=== PATIENT | female | born 1955 | race Caucasian/White ===

== ENCOUNTER 2022-04-19 11:22 | Outpatient (CLI) | payer OTHER ==
[2022-04-19 18:22] LABS: THYROID STIMULATING HORMONE 0.75 uIU/mL (0.34-5.60)
== END 2022-04-19 11:23 | disposition home or self-care (01) ==
LOC: LAB.N 11:22
PROVIDERS: ATTEND Family Medicine
DX: E03.9 Hypothyroidism, unspecified (principal)
CPT/HCPCS: 36415; 84443

== ENCOUNTER 2023-03-26 11:24 | Outpatient (CLI) | payer MEDICARE | END 2023-03-26 11:25 | disposition critical access hospital (66) | LOC: EMS 11:24 | DX: M25.512 Pain in left shoulder (principal); R20.2 Paresthesia of skin; S01.21XA Laceration without foreign body of nose, initial encounter; S00.81XA Abrasion of other part of head, initial encounter; K08.419 Partial loss of teeth due to trauma, unspecified class; W01.0XXA Fall on same level from slipping, tripping and stumbling without subsequent striking against object, initial encounter; Y93.K1 Activity, walking an animal; Y92.414 Local residential or business street as the place of occurrence of the external cause | CPT/HCPCS: A0425; A0427 ==

== ENCOUNTER 2023-03-26 11:40 | Emergency (ER) | payer OTHER ==
--- NOTE | 2023-03-26 12:09 | ED Physician Documentation ---
History of Present Illness - Stated complaint Stated Complaint: FALL/HEAD LAC/NOSE/MOUTH - Chief complaint Chief Complaint: Trauma Hd/Nk - History obtained from History obtained from: Patient, EMS - History of Present Illness Timing: Today Pain level max: 7 Pain level now: 7 - Additonal information Additional information: Patient was walking her dog today when it pulled on the leash and she fell to the ground. She knocked out her 2 front teeth. Has pain to the head, forehead, upper neck, nose. Also complaining of pain to left shoulder. States she is unable to move the left shoulder. She has also complaining of abrasions to the bilateral knees. No loss of consciousness. No vomiting but when EMS gave her pain medication, she became nauseated so they gave her Zofran. She is not on blood thinners. She states she is not up-to-date on her tetanus vaccination but refuses any vaccinations. Review of Systems Constitutional: denies: Fever, Chills GI: denies: Vomiting, Diarrhea Skin: denies: Rash Musculoskeletal: denies: Back pain Neurologic: denies: Focal weakness, Numbness, Confused, Altered mental status PD PAST MEDICAL HISTORY - Present Medications Home Medications: Ambulatory Orders Medication Instructions Recorded Confirmed Chlorhexidine Gluconate [Peridex] 15 ml MM BID #118 ml 03/26/23 Promethazine [Phenergan] 25 mg PO Q6H PRN #10 tab 03/26/23 cephALEXin [Keflex] 500 mg PO Q6H #28 cap 03/26/23 oxyCODONE [Roxicodone] 5 - 10 mg PO Q6H PRN #14 tablet 03/26/23 MDD 6 - Allergies Allergies/Adverse Reactions: Allergies Allergy/AdvReac Type Severity Reaction Status Date / Time nitrofurantoin Allergy Hives Verified 03/26/23 11:59 [From Macrodantin] Sulfa (Sulfonamide Allergy Hives Verified 03/26/23 11:59 Antibiotics) - Family History Family history: reports: Non contributory - Immunizations Immunizations: TDAP >10years/unknown PD ED PE NORMAL - Vitals Vital signs reviewed: Yes - General General: Alert and oriented X 3, No acute distress, Well developed/nourished - HEENT HEENT: PERRL, EOMI, Ears normal, Moist mucous membranes, Pharynx benign, Other (Abrasions to the forehead, the nose, small laceration to the inner aspect of the lower lip. Teeth 8 and 9 are avulsed and missing. Tooth #10 is loose. No other facial bone tenderness) - Neck Neck: Supple, no meningeal sign, No bony TTP - Cardiac Cardiac: RRR, Strong equal pulses - Respiratory Respiratory: No respiratory distress, Clear bilaterally - Abdomen Abdomen: Soft, Non tender, Non distended - Derm Derm: Warm and dry - Extremities Extremities: Other (Tender to palpation over the left glenohumeral joint. Unable to move the left arm secondary to pain. Neurovascular intact. Small abrasions to the bilateral knees. No tenderness, full range of motion of both knees without pain. Otherwise normal examination of the extremities.) - Neuro Neuro: Alert and oriented X 3, l tacker 2-12 intact, No motor deficit, No sensory deficit, Normal speech Eye Opening: Spontaneous Motor: Obeys Commands Verbal: Oriented GCS Score: 15 - Psych Psych: Normal mood, Normal affect Results - Vitals Vitals: Vital Signs - 24 hr 03/26/23 03/26/23 03/26/23 11:48 13:07 13:37 Temperature 36.1 C L Heart Rate 70 83 85 Respiratory 28 H 20 20 Rate Blood Pressure 139/71 H 130/62 129/61 O2 Saturation 100 97 100 Oxygen O2 Source Room air - Labs Labs: Laboratory Tests 03/26/23 03/26/23 12:18 12:18 WBC 9.2 RBC 4.60 Hgb 13.6 Hct 40.8 MCV 88.7 MCH 29.6 MCHC 33.3 RDW 13.1 Plt Count 177 MPV 11.4 H Neut # (Auto) 6.5 Lymph # (Auto) 1.8 [place] # (Auto) 0.8 Eos # (Auto) 0.1 Baso # (Auto) 0.0 Absolute Nucleated RBC 0.00 Nucleated RBC % 0.0 Sodium 135 Potassium 3.9 Chloride 105 Carbon Dioxide 23 Anion Gap 7.0 BUN 21 H Creatinine 0.9 Estimated GFR (MDRD) 62 L Glucose 128 H Calcium 9.4 Total Bilirubin 0.5 AST 26 ALT 20 Alkaline Phosphatase 92 Total Protein 6.9 Albumin 4.2 Globulin 2.7 Albumin/Globulin Ratio 1.6 Lipase 38 - Rads (name of study) head CT Relevant Findings:: Final report received, See rad report maxillofacial CT Relevant Findings:: Final report received, See rad report cervical spine CT Relevant Findings:: Final report received, See rad report L shoulder CT Relevant Findings:: Final report received, See rad report L shoulder xray Relevant Findings:: Final report received, See rad report PD Medical Decision Making - ED course Complexity details: reviewed results, re-evaluated patient, considered differential, d/w patient, d/w interior design consultant ED course: 67-year-old female status post ground-level fall. Has a left impacted comminuted humeral head fracture. Neurovascularly intact. Placed in a shoulder immobilizer. She also is missing her eighth and ninth teeth. Multiple facial abrasions. Has a small nasal fracture at the tip of her nose. No lacerations that require repair. We will place on Keflex, Peridex. Recommend liquid diet. Discussed the case with Dr. Jones, orthopedics, recommends a CT of the left shoulder for operative planning. This was performed. Also discussed the case with Dr. Ron barfield, [facility] who will follow-up with the patient in the office. No indication to replant the teeth at this time. Patient counseled regarding signs and symptoms for which I believe and urgent re-evaluation would be necessary. Patient with good understanding of and agreement to plan and is comfortable going home at this time This document was made in part using voice recognition software. While efforts are made to proofread this document, sound alike and grammatical errors may occur. Departure - Departure Disposition: 01 Home, Self Care Clinical Impression: Facial abrasion Qualifiers: Encounter type: initial encounter Qualified Code(s): S00.81XA - Abrasion of other part of head, initial encounter Avulsed tooth Qualifiers: Encounter type: initial encounter Qualified Code(s): S03.2XXA - Dislocation of tooth, initial encounter Shoulder fracture, left Qualifiers: Encounter type: initial encounter Fracture type: closed Qualified Code(s): S42.92XA - Fracture of left shoulder girdle, part unspecified, initial encounter for closed fracture Nasal fracture Qualifiers: Encounter type: initial encounter Fracture type: closed Qualified Code(s): S02.2XXA - Fracture of nasal bones, initial encounter for closed fracture Condition: Good Instructions: ED Abrasion, ED Fx Tooth, ED Head Injury Closed, ED Fx Shoulder Follow-Up: POONAM DUNN DO [Primary Care Provider] - Within 1 week NATALIE BRUCE [Physician No Access] - Obi Jones MD [Provider Admit Priv/Credential] - Prescriptions: cephALEXin [Keflex] 500 mg PO Q6H #28 cap Chlorhexidine Gluconate [Peridex] 15 ml MM BID #118 ml Promethazine [Phenergan] 25 mg PO Q6H PRN #10 tab PRN Reason: Nausea / Vomiting oxyCODONE [Roxicodone] 5 - 10 mg PO Q6H PRN #14 tablet MDD 6 PRN Reason: pain Comments: Your prescriptions were sent to [facility] in [place]. It is importantly follow-up with orthopedics for your shoulder fracture as this will likely require surgery. A CT scan was performed of your shoulder today as well. I spoke with Dr. Jones, orthopedics who can see you in the office. I also spoke with Dr. Bruce, oral maxillofacial surgery who will follow you up for your dental trauma. Please call their offices for appointments. Please return if you worsen. Would recommend a soft food diet/liquid diet until your teeth are evaluated. Please be careful that food does not become stuck in the empty sockets as well.You may need to gently irrigate your mouth after eating. I am prescribing a short course of narcotic pain medication for you. These are potentially dangerous and addictive medications that should be used carefully. These medications may constipate you. Take an ggxl-rsb-mmwfqeg stool softener (docusate) twice daily with plenty of water while taking these medications. If you go 24 hours without a bowel movement, take kruw-snb-yrixfnt miralax, per package instructions. Do not drink or drive while taking these medications. If you received narcotic or sedating medications while in the emergency department, do not drive for 24 hours. Store this medication in a safe, secure place and out of reach of children. It is a violation of federal law to give or sell this medication to another person or to use in a manner other than prescribed. The ED will not refill narcotic prescriptions, including prescriptions lost or stolen. To dispose of unwanted medications: 1. [facility] [address] in [place] has a medication drop box. They accept prescription medications (in pill form) Friday through Friday 9:00 a.m. to 5:00 p.m. 2. [facility] [employer] accepts prescription medications (in pill form only) for disposal year round. Call for more information. 3. Contact the [facility] for the next [facility] sponsored prescription drug collection event. , [phone], or [phone]; Forms: PCP List Discharge Date/Time: 03/26/23 14:39
[2023-03-26] MEDS: DROPERIDOL 5 MG/2 ML VIAL IVP STA (12:12)
[2023-03-26] MEDS: SODIUM CHLORIDE 0.9% 1,000 ML IV STA (12:12)
[2023-03-26] MEDS: HYDROmorphone 1 MG/ML CARPUJECT IVP STA (12:12)
[2023-03-26 12:22] LABS: BASOPHILS % (AUTO) 0.4 %; EOSINOPHILS # (AUTO) 0.1 10^3/uL (0.0-0.7); EOSINOPHILS % (AUTO) 0.8 %; HCT - HEMATOCRIT 40.8 % (37.0-47.0); HGB - HEMOGLOBIN 13.6 g/dL (12.0-16.0); LYMPHOCYTES # (AUTO) 1.8 10^3/uL (1.5-3.5); LYMPHOCYTES % (AUTO) 19.2 %; MEAN CORPUSCULAR HEMOGLOBIN 29.6 pg (27.0-31.0); MEAN CORPUSCULAR HGB CONC 33.3 g/dL (32.0-36.0); MEAN CORPUSCULAR VOLUME 88.7 fL (81.0-99.0); MEAN PLATELET VOLUME 11.4 fL (7.9-10.8); MONOCYTES # (AUTO) 0.8 10^3/uL (0.0-1.0); MONOCYTES % (AUTO) 8.5 %; NEUTROPHILS # (AUTO) 6.5 10^3/uL (1.5-6.6); NEUTROPHILS % (AUTO) 70.7 %; PLT - PLATELET COUNT 177 10^3/uL (130-450); RED CELL DISTRIBUTION WIDTH 13.1 % (12.0-15.0); WHITE BLOOD COUNT 9.2 x10^3/uL (4.8-10.8)
[2023-03-26 12:43] LABS: ALBUMIN 4.2 g/dL (3.2-5.5); ALBUMIN/GLOBULIN RATIO 1.6 (1.0-2.2); BILIRUBIN,TOTAL 0.5 mg/dL (0.2-1.0); CALCIUM 9.4 mg/dL (8.5-10.3); CREATININE 0.9 mg/dL (0.6-1.3); POTASSIUM 3.9 mmol/L (3.5-4.5); TOTAL PROTEIN 6.9 g/dL (6.4-8.9)
--- NOTE | 2023-03-26 13:25 | CT Report ---
PROCEDURE: HEAD WO INDICATIONS: fall, pain TECHNIQUE: Noncontrast 4.5 mm thick angled axial sections acquired from the foramen magnum to the vertex. For r adiation dose reduction, the following was used: automated exposure control, adjustment of mA and/or kV according to patient size. COMPARISON: None. FINDINGS: Image quality: Excellent. CSF spaces: Basal cisterns are patent. No extra-axial fluid collections. Ventricles are normal in size and shape. Brain: No midline shift. No intracranial masses or hemorrhage. Fischer-white matter interface is norm al. Skull and face: Calvarium and visualized facial bones are intact, without suspicious lesions. Sinuses: Visualized sinuses and mastoids are clear. IMPRESSION: No acute intracranial pathology Reviewed by: Milton Almeida MD on 03/26/2023 1:24 PM PDT Approved by: Milton Almeida MD on 03/26/2023 1:24 PM PDT Station ID: [id number]
--- NOTE | 2023-03-26 13:28 | CT Report ---
PROCEDURE: CERVICAL SPINE WO INDICATIONS: fall, pain TECHNIQUE: Noncontrast 3 mm thick sections acquired from the skull base to the T4 level. Sagittal and coronal r eformats were then constructed. For radiation dose reduction, the following was used: automated exp osure control, adjustment of mA and/or kV according to patient size. COMPARISON: None. FINDINGS: Image quality: Excellent. Bones: No fractures or dislocations. Visualized superior ribs are intact. Relatively mild cervical spondylosis. Soft tissues: Prevertebral soft tissues are normal in thickness. No paravertebral hematomas. No ap ical pneumothoraces. Calcified granuloma, right apex. IMPRESSION: No acute cervical fracture or dislocation. Reviewed by: Milton Almeida MD on 03/26/2023 1:27 PM PDT Approved by: Milton Almeida MD on 03/26/2023 1:27 PM PDT Station ID: [id number]
--- NOTE | 2023-03-26 13:31 | CT Report ---
PROCEDURE: MAXILLOFACIAL WO INDICATIONS: fall, pain TECHNIQUE: Noncontrast 1.5 mm thick axial images acquired from the mandible through the frontal sinuses, with co nemesio and sagittal reformatting. For radiation dose reduction, the following was used: automated ex posure control, adjustment of mA and/or kV according to patient size. COMPARISON: None. FINDINGS: Image quality: Excellent. Bones and teeth: Orbital rice are intact. Sinus rice show no fracture or deformity. Tip of nasal bone fracture. Septum is intact. Visualized portions of the mandible demonstrate no fractures or sub luxation. Zygomatic arches are intact. Pterygoid plates are intact. Visualized portions of the sku ll base and auditory canals are intact. Sinuses: Paranasal sinuses are aerated, without fluid levels, mucosal thickening, or mucoceles. Mas toid air cells are aerated. Soft tissues: No edema, masses, or fluid collections. No enlarged lymph nodes. No soft tissue lace rations or debris. Vascular: Visualized vascular structures appear normal in the absence of contrast. Bony vascular fo ramina and canals are intact. IMPRESSION: 1. Tip of nasal bone fracture. 2. No other facial fractures or mandibular fractures. Reviewed by: Milton Almeida MD on 03/26/2023 1:29 PM PDT Approved by: Milton Almeida MD on 03/26/2023 1:29 PM PDT Station ID: [id number]
[2023-03-26 13:42] VITALS: BP 129/61; O2SAT 100
--- NOTE | 2023-03-26 13:43 | CT Report ---
PROCEDURE: UPPER EXTREMITY WO - LT INDICATIONS: shoulder fracture TECHNIQUE: Noncontrast 2 mm axial sections were acquired through the elbow joint, with coronal and sagittal refo rmats. For radiation dose reduction, the following was used: automated exposure control, adjustment of mA and/or kV according to patient size. COMPARISON: Shoulder radiograph on the same day. FINDINGS: Image quality: Excellent. Bones: Acute comminuted fractures involving surgical neck/proximal shaft of left humerus with fractu re line extending to involve both greater and lesser tuberosities. There is up to 7 mm impaction at f racture site. Anterior and medial displacement of proximal humeral shaft in relation to humeral head is seen. Smaller anterior laterally displaced fractured fragments at greater tuberosity fracture site is seen. There is no other fracture or dislocation. No suspicious bony lesions. Mild to moderate acr omioclavicular joint osteoarthritic changes are seen. Visualized left ribs are intact. Soft tissues: There is significant soft tissue swelling and edema surrounding proximal humeral fract ure site. Small glenohumeral joint effusion is seen. No abnormal soft tissue calcifications or calcif ied intra-articular loose bodies. No gross full-thickness rotator cuff tendon rupture. No significant rotator cuff muscle atrophy. Visualized left lung boyle are clear. IMPRESSION: 1. Acute comminuted, impacted and slightly displaced fracture involving left proximal humerus/surgica l neck extending to involve both greater and lesser tuberosity of humeral head as above. 2. No other fracture or dislocation. Mild to moderate acromioclavicular joint osteoarthritis. 3. No full-thickness rotator cuff tendon rupture. No significant rotator cuff muscle atrophy. Small j oint effusion, no abnormal soft tissue calcifications. Reviewed by: Andrea Aragon MD on 03/26/2023 1:42 PM PDT Approved by: Andrea Aragon MD on 03/26/2023 1:42 PM PDT Station ID: [id number]
--- NOTE | 2023-03-26 13:53 | XRAY Report ---
PROCEDURE: Shoulder 3 View LT INDICATIONS: fall, pain TECHNIQUE: 3 views of the shoulder were acquired. COMPARISON: None. FINDINGS: Bones: Comminuted mildly displaced fracture of the proximal humeral head and neck. Humeral shaft anastacio ears mildly impacted. There is mild displacement of a greater tuberosity fragment. Soft tissues: No suspicious soft tissue calcifications. IMPRESSION: Comminuted mildly displaced fracture of the left proximal humeral head and neck. Reviewed by: Home Goldman MD on 03/26/2023 1:51 PM PDT Approved by: Home Goldman MD on 03/26/2023 1:51 PM PDT Station ID: [id number]
== END 2023-03-26 14:39 | disposition home or self-care (01) ==
LOC: EDUNIT# → ED 11:40
DX: S42.352A Displaced comminuted fracture of shaft of humerus, left arm, initial encounter for closed fracture (principal); S02.2XXA Fracture of nasal bones, initial encounter for closed fracture; S03.2XXA Dislocation of tooth, initial encounter; S00.81XA Abrasion of other part of head, initial encounter; S00.31XA Abrasion of nose, initial encounter; S80.212A Abrasion, left knee, initial encounter; S80.211A Abrasion, right knee, initial encounter; W18.30XA Fall on same level, unspecified, initial encounter; Y93.K1 Activity, walking an animal
CPT/HCPCS: 36415; 80053; 83690; 85025; 96374; 99284

== ENCOUNTER 2023-03-31 08:00 | Outpatient (CLI) | payer MEDICARE ==
--- NOTE | 2023-03-31 14:09 | XRAY Report ---
PROCEDURE: Shoulder 3 View LT INDICATIONS: LEFT SHOULDER FRACTURE TECHNIQUE: 3 views of the shoulder were acquired. COMPARISON: CT and plain films dated 03/26/2023 FINDINGS: Bones: As before, there is a moderately displaced comminuted and mildly angulated fracture of the hu meral head and neck. Alignment is not significantly changed. No suspicious bony lesions. Visualized ribs appear intact. Soft tissues: No suspicious soft tissue calcifications. IMPRESSION: No significant change in humeral head/neck fracture. Reviewed by: Wali Bull MD on 03/31/2023 2:07 PM PDT Approved by: Wali Bull MD on 03/31/2023 2:07 PM PDT Station ID: [id number]
== END 2023-03-31 23:59 | disposition home or self-care (01) ==
LOC: DI.WOS 08:00
PROVIDERS: ATTEND Orthopaedic Surgery
DX: S42.212D Unspecified displaced fracture of surgical neck of left humerus, subsequent encounter for fracture with routine healing (principal)

== ENCOUNTER 2023-09-08 10:19 | Outpatient (CLI) | payer MEDICARE ==
--- NOTE | 2023-09-17 12:24 | Mammography Report ---
BILATERAL DIGITAL SCREENING MAMMOGRAM 3D/2D: 09/08/2023 CLINICAL: Routine screening. No prior exams were available for comparison. There are scattered areas of fibroglandular density in both breasts (category b / 25%-50% glandular t issue). No significant masses, calcifications, or other findings are seen in either breast. IMPRESSION: NEGATIVE There is no mammographic evidence of malignancy. A 1 year screening mammogram is recommended. Based on the Tyrer Cuzick model (a risk assessment model) the patient's lifetime risk is 7.5% and her 10 year risk is 3.9%. According to the ACR, ACS, and NCCN guidelines, an annual breast MRI exam lena g with mammogram is recommended if the patients lifetime risk is 20% or greater. This exam was interpreted at Station ID: [id number]. NOTE: For mammograms, a report in lay terms will be sent to the patient. Approximately 15% of breast malignancies will not be visualized mammographically. In the management of a palpable breast mass, a negative mammogram must not discourage biopsy of a clinically suspicious lesion. Electronically Signed By: Jagjit schroeder/mohini:09/17/2023 09:43:02 letter sent: No_Letter ACR BI-RADS Category 1: Negative 3341F PARENCHYMAL PATTERN: (A) - The breast(s) demonstrate(s) scattered fibroglandular densities. BI-RADS CATEGORY: (1) - 1 Mammogram [id number] 1 year screening LATERALITY: (B)
== END 2023-09-08 10:20 | disposition home or self-care (01) ==
LOC: DI.N 10:19
DX: Z12.31 Encounter for screening mammogram for malignant neoplasm of breast (principal); R92.323 Mammographic fibroglandular density, bilateral breasts